=== PATIENT | female | born 1965 | race Caucasian/White ===

== ENCOUNTER 2016-12-12 06:08 | Emergency (ER) | payer OTHER ==
[~2016-12-12] VITALS: Ht 167.6 cm; Wt 67.1 kg
[2016-12-12 06:59] VITALS: BP 143/88
== END 2016-12-12 07:03 | disposition home or self-care (01) ==
LOC: EME 06:08
PROC: 0H9FXZZ Drainage of Right Hand Skin, External Approach (ICD-10-PCS; principal; 2016-12-12)
DX: L03.011 Cellulitis of right finger (principal); M79.644 Pain in right finger(s); F98.8 Other specified behavioral and emotional disorders with onset usually occurring in childhood and adolescence; Z72.0 Tobacco use
CPT/HCPCS: 99281; 99283